=== PATIENT | male | born 1990 | race Caucasian/White ===

== ENCOUNTER 2020-04-27 19:41 | Inpatient (IN) | payer BC, OTHER ==
[~2020-04-27] VITALS: Ht 177.8 cm; Wt 84.0 kg
[2020-04-27 20:20] LABS: MEAN CORPUSCULAR HEMOGLOBIN 30 PG (25-34); WHITE BLOOD COUNT 14.8 10^3/uL (4.3-11.0)
[2020-04-27 20:21] LABS: BASOPHILS % (AUTO) 0 % (0-10); EOSINOPHILS # (AUTO) 0.1 10^3/uL (0.0-0.3); EOSINOPHILS % (AUTO) 1 % (0-10); HEMATOCRIT 44 % (40-54); LYMPHOCYTES # (AUTO) 2.2 X 10^3 (1.0-4.0); LYMPHOCYTES % (AUTO) 15 % (12-44); MEAN CORPUSCULAR HGB CONC 35 G/DL (32-36); MEAN CORPUSCULAR VOLUME 87 FL (80-99); MEAN PLATELET VOLUME 10.5 FL (7.4-10.4); MONOCYTES # (AUTO) 0.8 X 10^3 (0.0-1.0); MONOCYTES % (AUTO) 5 % (0-12); NEUTROPHILS # (AUTO) 11.7 X 10^3 (1.8-7.8); NEUTROPHILS % (AUTO) 79 % (42-75); PLATELET COUNT 184 10^3/uL (130-400)
[2020-04-27 20:37] LABS: ALANINE AMINOTRANSFERASE 25 U/L (0-55); ALBUMIN 4.9 GM/DL (3.2-4.5); ALKALINE PHOSPHATASE 56 U/L (40-136); BILIRUBIN,TOTAL 0.3 MG/DL (0.1-1.0); BUN/CREATININE RATIO 19; CARBON DIOXIDE 24 MMOL/L (21-32); CHLORIDE 103 MMOL/L (98-107); CREATININE SERUM 1.13 MG/DL (0.60-1.30); GFR ESTIMATED > 60; GLUCOSE 162 MG/DL (70-105); POTASSIUM 4.5 MMOL/L (3.6-5.0); SODIUM 139 MMOL/L (135-145); TOTAL PROTEIN 6.9 GM/DL (6.4-8.2)
--- NOTE | 2020-04-27 20:39 | Diagnostic Imaging Report ---
INDICATION: Unresponsiveness. COMPARISON: None available. FINDINGS: The lungs appear clear without focal infiltrate or consolidation. There are no findings of an effusion. There is no evidence of a pneumothorax. Heart size and mediastinal contours appear appropriate. Pulmonary vascularity appears within normal limits. There is no acute or suspicious osseous abnormality demonstrated. IMPRESSION: No radiographic evidence of an acute cardiopulmonary process. Dictated by: Dictated on workstation # [id number]
--- NOTE | 2020-04-27 20:45 | Diagnostic Imaging Report ---
PROCEDURE: CT head without contrast. TECHNIQUE: Multiple contiguous axial images were obtained through the brain without the use of intravenous contrast. Auto Exposure Controls were utilized during the CT exam to meet ALARA standards for radiation dose reduction. INDICATION: Unresponsiveness. Altered mental status. No relevant comparison is available. FINDINGS: There are no CT findings of acute intracranial hemorrhage. There is no evidence of an abnormal extra-axial collection. There is no intracranial mass effect or shift. There are no findings of hydrocephalus. There is no territorial loss of thompson-white differentiation or findings to suggest global cerebral edema. 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 The basilar cisterns appear patent. The mastoid air cells appear clear. The paranasal sinuses demonstrate no air-fluid levels. The orbital contents unremarkable. There is no acute calvarial abnormality. IMPRESSION: 1. 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 There are no CT findings of an acute intracranial abnormality. Dictated by: Dictated on workstation # [id number]
[2020-04-27 20:53] LABS: ABG BASE EXCESS -1.2 MMOL/L (-2.5-2.5); ABG OXYGEN SATURATION 97 % (94-100); ABG PCO2 39 MMHG (35-45); ABG PH 7.39 (7.37-7.43); ABG PO2 93 MMHG (79-93); ABG TCO2 24.8 MMOL/L (21.0-31.0)
[2020-04-27 20:54] LABS: ALLENS TEST YES-POS; INSPIRED O2 ROOM AIR; PATIENT TEMP 98.4; VENTILATOR NO
[2020-04-27 21:01] LABS: BAND NEUTROPHILS 7 %; BASOPHILS % (MANUAL) 0 %; EOSINOPHILS % (MANUAL) 0 %; LYMPHOCYTES % (MANUAL) 20 %; MONOCYTES % (MANUAL) 6 %; NEUTROPHILS % (MANUAL) 67 %; RBC MORPH NORMAL
--- NOTE | 2020-04-27 21:01 | NUR ---
PT AWAKE IN ROOM AND ABLE TO ANSWER SOME QUESTIONS. PT STATES HE REMEMBERS VOMITING ON SELF TODAY. PT GOES BACK TO SLEEP AND WAKES EASILY.
[2020-04-27] MEDS: NS IV 1000 ML 1,000 ML IV SCH ×3 (21:02→23:31)
[2020-04-27] MEDS ORDERED: cefTRIAXone FOR IV USE 2,000 MG in WATER (STERILE) FOR INJECTION 20 ML IV ONE (21:30)
[2020-04-27] MEDS ORDERED: VANCOMYCIN INJECTION 1,500 MG in NS IV 500 ML 500 ML IV ONE (21:30)
[2020-04-27] MEDS ORDERED: ETOMIDATE IV SOLN 20 MG/10 ML VIAL IV ONE (21:30)
--- NOTE | 2020-04-27 22:33 | NUR ---
PT'S CALLED AND WAS GIVEN UPDATE. INFORMED THAT PT WILL BE ADMITTED AND THAT WE ARE WAITING TO FIND OUT ABOUT BED AVAILABILITY AT [facility]. INFORMED THAT IF BEDS ARE NOT AVAILIBLE IN [place] THAT PT WILL BE TRANSFERRED TO ANOTHER FACILITY AND THAT SHE WOULD BE CONTACTED WHEN IT WAS DETERMINED WHERE THE PT WILL BE ADMITTED. VOICED UNDERSTANDING AND STATES THAT SHE AND FAMILY WILL RETURN HOME AT THIS TIME.
[2020-04-27 22:59] LABS: AMPHETAMINE SCREEN, URINE NEGATIVE (NEGATIVE); BARBITURATE SCREEN URINE NEGATIVE (NEGATIVE); BENZODIAZEPINES SCREEN URINE NEGATIVE (NEGATIVE); CANNABINOID SCREEN, URINE NEGATIVE (NEGATIVE); COCAINE SCREEN URINE NEGATIVE (NEGATIVE); METHADONE STAT NEGATIVE (NEGATIVE); METHAMPHETAMINE SCREEN URINE S NEGATIVE (NEGATIVE); OPIATE SCREEN URINE NEGATIVE (NEGATIVE); OXYCODONE STAT NEGATIVE (NEGATIVE); PROPOXYPHENE STAT NEGATIVE (NEGATIVE); TRICYCLIC ANTIDEPRESSANTS SCRE NEGATIVE (NEGATIVE)
[2020-04-27 23:45] LABS: AMMONIA 43 UMOL/L (11-32)
--- NOTE | 2020-04-27 23:46 | NUR ---
EMS CONTACTED FOR TRANSPORT TO [facility]
[2020-04-27 23:49] LABS: CSF GLUCOSE 71 MG/DL (50-80)
[2020-04-27 23:55] LABS: CSF TOTAL PROTEIN 26 MG/DL (15-40)
--- NOTE | 2020-04-27 23:55 | NUR ---
FIRST ATTEMPT TO CALL REPORT. JR IN ICU STATES THAT NURSE HAS CHANGED AND THAT THEY WILL CALL WITH NEW INFORMATION. JR INFORMED THAT EMS IS ALREADY ENROUTE TO THIS ED TO PICK PT UP.
--- NOTE | 2020-04-27 23:59 | NUR ---
EMS ARRIVED TO TRANSPORT PT TO [facility].
[2020-04-28 00:10] VITALS: BP 111/69
[2020-04-28 00:35] LABS: APPEARANCE,CSF CLEAR; COLOR,CSF COLORLESS; CSF TUBE NUMBER 3; RED BLOOD CELL,CSF 2 CELLS (0-0); WHITE BLOOD CELL,CSF 2 CELLS (0-5)
--- NOTE | 2020-04-28 01:44 | NUR ---
Abundio Greenberg admitted to room 512-1, with an admitting diagnosis of sepsis, on 04/28/20 from ED via EMS, accompanied by EMS STAFF.ABUNDIO GREENBERG introduced to surroundings, call light, bed controls, phone, TV, temperature control, lights, meal times, smoking policy, visitor policy, side rail policy, bathrooms and showers. Patient Rights given to patient in the handbook.ABUNDIO GREENBERG verbalizes understanding that [facility] is not responsible for the loss or damage to any personal effects or valuables that are kept in the patients posession during their hospitalization.
[2020-04-28] MEDS ORDERED: NS IV 1000 ML 1,000 ML ONE (01:47)
[2020-04-28] MEDS ORDERED: NS IV 1000 ML 1,000 ML IV SCH (02:30)
--- NOTE | 2020-04-28 03:01 | ED General ---
General Chief Complaint: Unresponsive Stated Complaint: SEPSIS,ALTERED MENTAL STATUS,UNRESPONSIVE, Nursing Triage Note: PT TO ROOM FS05 [facility] WITH C/O UNRESPONSIVE. PER EMS, PT WAS FOUND ON COUCH BY UNRESPONSIVE, COVERED IN HIS OWN VOMIT, WITH HIS PANTS PULLED DOWN. PT RESPONSIVE TO PAIN AND WOULD RESPOND TO NOISE BUT IS NOT VERBAL AT THIS TIME. Nursing Sepsis Screen: No Definite Risk Source of Information: EMS Exam Limitations: Other History of Present Illness Date Seen by Provider: Apr 27, 2020 Time Seen by Provider: 21:50 Initial Comments Patient is a 30-year-old male found unresponsive lying in vomit on his family home couch by his . Patient had his pants pulled down and was responsive to pain on EMS arrival. Patient would cry but was nonverbal. No history of diabetes. Blood sugar 108. No history of seizure disorder, drug abuse or evidence of intentional drug overdose. 2 mg of Narcan given without improvement History Limited by the patient's presentation and mental status. Timing/Duration: 1 Hour Severity: Severe Modifying Factors: improves with Other Associated Systoms: Other Allergies and Home Medications Allergies Coded Allergies: Penicillins (Verified Allergy, Unknown, 04/27/20) Sulfa (Sulfonamide Antibiotics) (Verified Allergy, Unknown, 04/27/20) Patient Home Medication List Home Medication List Reviewed: Yes Review of Systems Review of Systems Constitutional: see HPI EENTM: see HPI Respiratory: see HPI Cardiovascular: see HPI Gastrointestinal: see HPI Genitourinary: see HPI Musculoskeletal: see HPI Skin: see HPI Psychiatric/Neurological: See HPI Hematologic/Lymphatic: See HPI Immunological/Allergic: see HPI All Other Systems Reviewed Negative Unless Noted: Yes Past Dynkyen-Knokxo-Vljboe Hx Past Med/Social Hx: Reviewed Nursing Past Med/Soc Hx Patient Social History Alcohol Use: Denies Use Recreational Drug Use: No Smoking Status: Never a Smoker 2nd Hand Smoke Exposure: No Recent Foreign Travel: No Contact w/Someone Who Travel: No Recent Infectious Disease Expo: No Recent Hopitalizations: No Seasonal Allergies Seasonal Allergies: No Past Medical History Surgeries: No Respiratory: No Cardiac: No Neurological: No Genitourinary: No Gastrointestinal: No Musculoskeletal: No Endocrine: No HEENT: No Cancer: No Psychosocial: No Integumentary: No Physical Exam Vital Signs Vital Signs - First Documented 04/27/20 04/28/20 19:45 00:10 Temp 36.9 Pulse 67 Resp 16 B/P (MAP) 142/84 (103) Pulse Ox 99 O2 Delivery Room Air Capillary Refill : Less Than 3 Seconds Height, Weight, BMI Height: '" Weight: lbs. oz. kg; 22.00 BMI Method: General Appearance: Other (obtunded, pale, diaphoretic.) Eyes: Bilateral Eye Normal Inspection, Bilateral Eye PERRL, Bilateral Eye EOMI HEENT: PERRL/EOMI, Normal ENT Inspection, Pharynx Normal, Moist Mucous Membranes, Other (no oral lacerations.) Neck: Non Tender, Supple, Other (no meningismus or rigidity.) Respiratory: Lungs Clear, Decreased Breath Sounds Cardiovascular: Regular Rate, Rhythm Gastrointestinal: Normal Bowel Sounds, Non Tender, Soft Back: Normal Inspection Extremity: Other (decreased Really refill) Neurologic/Psychiatric: Other (obtunded, doesn't followcommands, verbal response, speaks in 2-3 word sentences.) Focused Exam Sepsis Stage: Sepsis Possible Source: Unknown Lactate Level 04/27/20 20:00: Lactic Acid Level 2.49*H Time of Focused Exam: 22:00 Respiratory: Lungs Clear Cardiovascular: Regular Rate, Rhythm Capillary Refill: Less Than 3 Seconds Skin: diaphoresis Lactic Acid Level 2.5 Within 3hrs of presentation: Admin fluids, Admin ABX, Blood cultures prior to ABX's, Focus exam, Lactate level Procedures/Interventions Discussed Risk,Benefits: No (emergently) Patient Consents: No Position: L3-4, Right Sterile Technique: Yes Fluid Color: c;ear Size of Disposal Tray Used: Adult patient given etomidate prior to procedure for cooperation and safety Progress/Results/Core Measures Suspected Sepsis Recent Fever Within 48 Hours: No Infection Criteria Present: Documented Infection New/Unexplained Altered Menta: Yes Sepsis Screen: No Definite Risk SIRS Temperature: Pulse: 67 Respiratory Rate: 17 Laboratory Tests 04/27/20 20:00: White Blood Count 14.8H Blood Pressure 111 /69 Mean: 78 04/27/20 20:00: Lactic Acid Level 2.49*H Laboratory Tests 04/27/20 20:00: Creatinine 1.13, Platelet Count 184, Total Bilirubin 0.3 Results/Orders Lab Results Laboratory Tests Test 04/27/20 19:52 04/27/20 20:00 04/27/20 20:45 04/27/20 22:00 Range/Units Glucometer 110 70-110 MG/DL White Blood Count 14.8 H 4.3-11.0 10^3/uL Red Blood Count 4.98 4.35-5.85 10^6/uL Hemoglobin 15.0 13.3-17.7 G/DL Hematocrit 44 40-54 % Mean Corpuscular Volume 87 80-99 FL Mean Corpuscular Hemoglobin 30 25-34 PG Mean Corpuscular Hemoglobin Concent 35 32-36 G/DL Red Cell Distribution Width 12.8 10.0-14.5 % Platelet Count 184 130-400 10^3/uL Mean Platelet Volume 10.5 H 7.4-10.4 FL Immature Granulocyte % (Auto) 0 % Neutrophils (%) (Auto) 79 H 42-75 % Lymphocytes (%) (Auto) 15 12-44 % Monocytes (%) (Auto) 5 0-12 % Eosinophils (%) (Auto) 1 0-10 % Basophils (%) (Auto) 0 0-10 % Neutrophils # (Auto) 11.7 H 1.8-7.8 X 10^3 Lymphocytes # (Auto) 2.2 1.0-4.0 X 10^3 Monocytes # (Auto) 0.8 0.0-1.0 X 10^3 Eosinophils # (Auto) 0.1 0.0-0.3 10^3/uL Basophils # (Auto) 0.0 0.0-0.1 10^3/uL Immature Granulocyte # (Auto) 0.1 0.0-0.1 10^3/uL Neutrophils % (Manual) 67 % Lymphocytes % (Manual) 20 % Monocytes % (Manual) 6 % Eosinophils % (Manual) 0 % Basophils % (Manual) 0 % Band Neutrophils 7 % Blood Morphology Comment NORMAL Sodium Level 139 135-145 MMOL/L Potassium Level 4.5 3.6-5.0 MMOL/L Chloride Level 103 98-107 MMOL/L Carbon Dioxide Level 24 21-32 MMOL/L Anion Gap 12 5-14 MMOL/L Blood Urea Nitrogen 22 H 7-18 MG/DL Creatinine 1.13 0.60-1.30 MG/DL Estimat Glomerular Filtration Rate > 60 BUN/Creatinine Ratio 19 Glucose Level 162 H 70-105 MG/DL Lactic Acid Level 2.49 *H 0.50-2.00 MMOL/L Calcium Level 9.0 8.5-10.1 MG/DL Corrected Calcium 8.5-10.1 MG/DL Total Bilirubin 0.3 0.1-1.0 MG/DL Aspartate Amino Transf (AST/SGOT) 22 5-34 U/L Alanine Aminotransferase (ALT/SGPT) 25 0-55 U/L Alkaline Phosphatase 56 40-136 U/L Ammonia 43 H 11-32 UMOL/L C-Reactive Protein 0.03 <0.50 MG/DL Total Protein 6.9 6.4-8.2 GM/DL Albumin 4.9 H 3.2-4.5 GM/DL Serum Alcohol < 10 <10 MG/DL Blood Gas Puncture Site LT RAD Blood Gas Patient Temperature 98.4 Arterial Blood pH 7.39 7.37-7.43 Arterial Blood Partial Pressure CO2 39 35-45 MMHG Arterial Blood Partial Pressure O2 93 79-93 MMHG Arterial Blood HCO3 24 23-27 MMOL/L Arterial Blood Total CO2 24.8 21.0-31.0 MMOL/L Arterial Blood Oxygen Saturation 97 94-100 % Arterial Blood Base Excess -1.2 -2.5-2.5 MMOL/L Stas Test YES-POS Blood Gas Ventilator Setting NO Blood Gas Inspired Oxygen ROOM AIR CSF Tube Number 3 CSF Appearance CLEAR CSF Color COLORLESS CSF WBC 2 0-5 CELLS CSF RBC 2 H 0-0 CELLS CSF Lymphocytes % CSF Mononuclear WBCs % CSF Polynuclear WBCs % CSF Glucose 71 50-80 MG/DL CSF Total Protein 26 15-40 MG/DL Test 04/27/20 22:30 Range/Units Urine Opiates Screen NEGATIVE NEGATIVE Urine Oxycodone Screen NEGATIVE NEGATIVE Urine Methadone Screen NEGATIVE NEGATIVE Urine Propoxyphene Screen NEGATIVE NEGATIVE Urine Barbiturates Screen NEGATIVE NEGATIVE Ur Tricyclic Antidepressants Screen NEGATIVE NEGATIVE Urine Phencyclidine Screen NEGATIVE NEGATIVE Urine Amphetamines Screen NEGATIVE NEGATIVE Urine Methamphetamines Screen NEGATIVE NEGATIVE Urine Benzodiazepines Screen NEGATIVE NEGATIVE Urine Cocaine Screen NEGATIVE NEGATIVE Urine Cannabinoids Screen NEGATIVE NEGATIVE My Orders Orders - NATHAN VELASQUEZ DO Cbc With Automated Diff (04/27/20 19:48) Comprehensive Metabolic Panel (04/27/20 19:48) Crp Fs (04/27/20 19:48) Arterial Blood Gas (04/27/20 19:48) Fsbs Greater Than 70mg/Dl (04/27/20 19:48) Drug Screen Stat (Urine) (04/27/20 19:48) Alcohol (12/10/20 19:48) Ammonia (04/27/20 19:48) Ct Head Wo (04/27/20 19:48) Lactic Acid Analyzer (04/27/20 19:48) Blood Culture (04/27/20 19:48) Chest 1 View Ap/Pa Only (04/27/20 19:48) Ekg Tracing (04/27/20 19:48) Manual Differential (04/27/20 20:00) Arterial Blood Gas (04/27/20 20:49) Ns Iv 1000 Ml (Sodium Chloride 0.9%) (04/27/20 21:00) Ceftriaxone For Iv Use (Rocephin For I (04/27/20 21:30) Vancomycin Injection (Vancomycin Injecti (04/27/20 21:30) Dexamethasone Injection (Decadron Injec (04/27/20 21:30) Etomidate Injection (Amidate Injection) (04/27/20 21:30) Blood Culture (04/27/20 20:06) Csf Cell Count (04/27/20 22:47) Csf Culture (04/27/20 22:47) Csf Glucose (04/27/20 22:47) Csf Total Protein (04/27/20 22:47) Medications Given in ED Current Medications Medications Dose Ordered Sig/Estela Route Start Time Stop Time Status Last Admin Dose Admin Ceftriaxone Sodium 2000 mg/ Sterile Water 20 ml @ 240 mls/hr ONCE ONCE IV 04/27/20 21:30 04/27/20 21:34 DC 04/27/20 22:04 240 MLS/HR Dexamethasone Sodium Phosphate 4 mg ONCE ONCE IV 04/27/20 21:30 04/27/20 21:31 DC 04/27/20 22:04 4 MG Etomidate 10 mg ONCE ONCE IV 04/27/20 21:30 04/27/20 21:31 DC 04/27/20 22:04 10 MG Vancomycin HCl 1500 mg/Sodium Chloride 500 ml @ 257.5 mls/ hr ONCE ONCE IV 04/27/20 21:30 04/27/20 23:26 DC 04/27/20 22:04 257.5 MLS/HR Vital Signs/I&O 04/27/20 04/28/20 04/28/20 04/28/20 19:45 00:10 00:55 02:07 Temp 36.9 36.0 36.0 Pulse 67 67 73 72 Resp 16 17 22 20 B/P (MAP) 142/84 (103) 111/69 104/58 (73) 112/67 (82) Pulse Ox 99 98 97 O2 Delivery Room Air Room Air Room Air Room Air 04/28/20 04/28/20 02:37 02:53 Pulse 73 Resp 20 B/P (MAP) 107/63 (78) Pulse Ox 97 97 O2 Delivery Room Air Room Air 04/28/20 00:00 Intake Total 2020 ml Balance 2020 ml Capillary Refill : Less Than 3 Seconds Blood Pressure Mean: 78 Departure Communication (Admissions) Altered mental status with elevated white blood cell count, unknown source of infection. Patient afebrile with stable vital signs in the emergency department but clammy and pale skin and elevated white blood cell count. CT head, initial lab reviewed. Clinically no source of infection. LP performed and tests pending as it is not available at this facility. Empiric embolic skin. Dr. Rico excepts to [place] for completion of workup. Patient remains in stable critical condition with unknown diagnosis at time of transfer Impression Primary Impression: Sepsis Additional Impression: Altered mental status Disposition: XFER T-[facility] Condition: Critical Admissions Decision to Admit Reason: Admit from ER (General) Transfer Transfer Reason: Exceeds level of care Time Spoke to Accepting Phy: 22:30 (Dr. Rico) Method of Transfer: EMS Departure-Patient Inst. Referrals: NOELLE MINAYA MD (PCP) Primary Care Physician NATHAN VELASQUEZ DO Apr 28, 2020 03:01
[2020-04-28 04:13] LABS: BASOPHILS % (AUTO) 0 % (0-10); EOSINOPHILS % (AUTO) 0 % (0-10); HEMATOCRIT 38 % (40-54); HEMOGLOBIN 12.6 g/dL (13.3-17.7); LYMPHOCYTES # (AUTO) 0.5 10^3/uL (1.0-4.0); LYMPHOCYTES % (AUTO) 4 % (12-44); MEAN CORPUSCULAR HEMOGLOBIN 30 pg (25-34); MEAN CORPUSCULAR HGB CONC 33 g/dL (32-36); MEAN CORPUSCULAR VOLUME 90 fL (80-99); MEAN PLATELET VOLUME 10.8 fL (9.0-12.2); MONOCYTES # (AUTO) 0.2 10^3/uL (0.0-1.0); MONOCYTES % (AUTO) 2 % (0-12); NEUTROPHILS # (AUTO) 9.7 10^3/uL (1.8-7.8); NEUTROPHILS % (AUTO) 93 % (42-75); PLATELET COUNT 154 10^3/uL (130-400); WHITE BLOOD COUNT 10.4 10^3/uL (4.3-11.0)
[2020-04-28 04:27] LABS: ALBUMIN 3.8 GM/DL (3.2-4.5); CHLORIDE 111 MMOL/L (98-107); POTASSIUM 4.5 MMOL/L (3.6-5.0); SODIUM 139 MMOL/L (135-145)
[2020-04-28 04:28] LABS: CALCIUM 7.4 MG/DL (8.5-10.1)
[2020-04-28 04:29] LABS: GLUCOSE 159 MG/DL (70-105)
[2020-04-28 04:30] LABS: TOTAL PROTEIN 5.8 GM/DL (6.4-8.2)
[2020-04-28 04:31] LABS: BILIRUBIN,TOTAL 0.8 MG/DL (0.1-1.0); CARBON DIOXIDE 19 MMOL/L (21-32)
[2020-04-28 04:33] LABS: ALKALINE PHOSPHATASE 40 U/L (40-136); CREATININE SERUM 1.14 MG/DL (0.60-1.30); GFR ESTIMATED > 60
[2020-04-28 04:34] LABS: BUN/CREATININE RATIO 20
[2020-04-28 04:36] LABS: ALANINE AMINOTRANSFERASE 25 U/L (0-55)
[2020-04-28] MEDS ORDERED: ACYCLOVIR INJECTION 800 MG in NS (IVPB) 250 ML IV SCH (06:00)
[2020-04-28] MEDS ORDERED: VANCOMYCIN INJECTION 750 MG in NS (IVPB) 250 ML IV SCH (08:00)
--- NOTE | 2020-04-28 10:00 | NUR ---
VANCOMYCIN DOSING SCR 1.14; IBW 73 KG; CRCL ~ 99; EPHARMACY DOSED BOLUS VANC 1500 MG THEN VANC 750 MG Q8H CHECK TROUGH LEVEL 04/29 0700 HOLD DOSE AND CONTACT PHARMACY IF LEVEL IS GREATER THAN 20 OR LESS THAN 10
--- NOTE | 2020-04-28 10:15 | NUR ---
PT FOUND TO HAVE LEFT SIDED FACIAL DROOP, AND LEFT SIDED WEAKNESS. PT AWAKENS WHEN NAME CALLED AND ABLE TO FOLLOW COMMAND. MRI ORDERED PER DR. CHRISTIAN
[2020-04-28] MEDS ORDERED: IBUP-2473 PO (10:28)
[2020-04-28] MEDS ORDERED: ESOM20CA58 PO (10:28)
--- NOTE | 2020-04-28 10:29 | NUR ---
I COULD NOT REACH THE PT ON THE ROOM PHONE- I THEN CALLED THE CELL # LISTED FOR HIM. PTS ([facility]OPE) ANSWERED AND I WAS ABLE TO COMPLETE THE MED REC FROM HER INFORMATION. ACCORDING TO HOPE THE PT DOES NOT TAKE ANY PRESCRIPTION MEDICATIONS AND ONLY TAKES OTC IBUPROFEN AND NEXIUM PRN. I UPDATED THE PREFERRED PHARMACY TO [facility] PER [facility]OPE'S REQUEST
--- NOTE | 2020-04-28 11:22 | Occ Therapy Progress Note ---
Therapy Progress Note OT orders received, chart reviewed. Per nursing/ DO, pt is to complete MRI due to suspected CVA. OT to hold tx at this time and await findings. OT to check in at next available time when medically appropriate. ROBERT ROY OTR Apr 28, 2020 11:22
--- NOTE | 2020-04-28 12:53 | NUR ---
MRI Emergency alarm started alarming. Yajaira communications technologist, yelled out in on license of [facility] for help. This RN immediately went to MRI where patient was discovered to be unresponsive. Patient difficult to arouse via sternal rubs. Patient moved out of MRI suite. Pulse check confirmed no pulse. CPR initiated immediately. Code Blue called. 1303: Epinephrine 1mg administered intravenously. Patient intubated by Dr. Fawad Castillo. 1304: Pulse check, no pulse palpable. CPR resumed immediately. 1305: Bolus of Normal Saline initiated. 1306: Epinephrine 1mg administered intravenously. 1310: Pulse check, no pulse palpable. CPR resumed immediately. 1311: Epinephrine 1mg administered intravenously. 1314: Pulse check and cardiac ultrasound performed. No pulse palpable and no cardiac motion detected. 1316: Epinephrine 1mg administered intravenously. 1318: Pulse check, no pulse palpable. CPR resumed immediately. Blood glucose level checked and resulted 114. 1321: Pulse check, pulse palpable, cardiac ultrasound confirmed slight cardiac motion. Pulse lost. CPR resumed immediately. 1325: Pulse check, no pulse palpable. CPR resumed immediately. 1327: Pulse check, no pulse palpable. CPR resumed immediately. 1328: Epinephrine 1mg administered intravenously. 1330: Pulse check, no pulse palpable. Dr. Gomez pronounced Time of .
[2020-04-28] MEDS ORDERED: LORazepam INJ 2 MG/ML (ATIVAN) VIAL ONE (13:00)
--- NOTE | 2020-04-28 13:00 | NUR ---
Called to MRI due to pt have a possible seizure. upon arrival pt was unresponsive and resuscitation measure were provided.
--- NOTE | 2020-04-28 13:20 | NUR ---
Responded to code kevon in Xray, contacted pts via phone, provided support. After pt I met family at hospital entrance, which included pts and her mother and sister(the sister did not enter hospital), pts 3 brothers and pts mother and father. I accompanied them to room to see pt and grieve, they made this journey 2 at a time, I accompanied each visit. I wore PPE and family wore masks. I offered support and prayer and comfort. Family was grieving but coping well and supporting one another. Cheikh GHOTRA RN was present at entry and facilitated with this process.
--- NOTE | 2020-04-28 13:21 | Anesthesia-Procedure Note ---
Procedures/Interventions Procedure Start/Stop/Diagnosis Date of Procedure: Apr 28, 2020 Start Time: 13:00 Referring Physician: Jason Preprocedural Diagnosis: Cardiopulmonary Arrest Brief History Responded to overhead Code blue to MRI. Code team in progress with CPR and ventilations per BVM. VL with [place] grade 1 view. #8.0 ETT at 24 CM. Breath sounds confirmed by myself and Dr. Gomez. ETCO2 confirmed with [employer]. Tube secured by RT. Pt left in care of code team. Stop Time: 13:07 Postprocedural Diagnosis: Cardiopulmonary Arrest Intubation RSI: No 100% pre-Ox, [id number]: No Videoscope used: Yes Mask Ventilation: positive Positive End Tide CO2: Yes Breath Sounds after Intubation: bilateral-equal Intubated with ease: Yes Intubation Complications: no complications Post Intubation Xray-done: No MARISOL SANDERS CRNA Apr 28, 2020 13:21
--- NOTE | 2020-04-28 13:25 | NUR ---
Responded to CODE. Retrieved 's number from registration. Provided Parts Professional Augusto with 's number and he resumed the call.
--- NOTE | 2020-04-28 14:33 | Diagnostic Imaging Report ---
PROCEDURE: MR imaging of the brain without contrast. TECHNIQUE: Multiplanar, multisequence MR imaging of the brain was performed without contrast. INDICATION: Unresponsive and possible stroke. Correlation is made with head CT one day earlier. Dimitry cisterna magna is again noted. Diffusion weighted images demonstrate a large area of diffusion restriction involving the right middle cerebral artery territory consistent with acute/subacute ischemia. There is restriction in the right caudate head. There is absence of the normal flow void in the right internal carotid artery consistent with right internal carotid artery occlusion. Flow voids within the left carotid siphon and basilar are noted. A moderate amount of edema on the right cerebral hemisphere is noted. There is no midline shift. Only limited imaging was performed due to patient experiencing a seizure during the study. IMPRESSION: 1. 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 Dictated by: Dictated on workstation # [id number]
--- NOTE | 2020-04-28 15:50 | NUR ---
Notified [facility] health dept and Dr Ge [facility] Coroner of possible COVID. [facility] Coroner wanted [facility] notified for autopsy. House sup notified.
--- NOTE | 2020-04-28 16:30 | NUR ---
NOTE FOR MANY EVENTS OF THE DAY REGARDING THIS PATIENT: Responded to CODE BLUE of patient while down getting MRI. Unsuccessful outcome after 30 minutes of resuscitation efforts. Called patient's with Dr. Giles and notified of of outcome. She was expected hysterical, but she indicated her mother had arrived and was with her and would drive her to the hospital. Received a note with patient's mothers phone number and was told she was in the parking lot. Called her to update her and her father about the events of the morning...again appropriately hysterical. She asked if she could see "her baby" and at this time reported that she is COVID +. I explained I would have to ask and see how we would work around this. She then indicated that a brother of the patient was in the parking lot. and was positive for COVID too... I and now the dev managerconsuelo Casas found patient's brother who was hysterical in his car. Once everyone arrived Chaplain Casas and I explained we would allow for 2 at a time to visit wearing a hospital gown and escorted by Chaplain Casas. We then started the visitation process. While patient's and her mother were up visiting I spoke to the mother and father to see if they had any questions. The father asked how this could have happened so quickly. I answered to what I knew and what could be possible precipitating factors. The sister in law later approached this RN to discuss that she felt I had answered the question inappropriately...I didn't need to mention COVID because now they are feeling guilty. She also had concern for only allowing for 2 visitors at a time and she knew for a fact that other family were allowed more that that.. Any time I attempted to explain or agree she shut me down and told me not to speak. The also has asked for an autopsy.
[2020-04-28] MEDS ORDERED: EPINEPHrine 0.1 MG/ML 10 ML (HOSPIRA) SYR IJ ONE (20:55)
[2020-04-28] MEDS ORDERED: NS 1000 ML IV BAG IV ONE (20:55)
[2020-04-28] MEDS ORDERED: cefTRIAXone 2,000 MG/SWFI 20 ML IV PUSH IV SCH ×2 (22:00)
[2020-04-29] MEDS ORDERED: TROUGH ORDER-PHARMACY XX NR (07:00)
--- NOTE | 2020-04-29 21:06 | Discharge Summary ---
Discharge Summary Hospital Course Problems/Dx: (1) Altered mental status Status: Acute (2) Acute ischemic right MCA stroke Status: Acute (3) Seizure Status: Acute (4) Cardiac arrest Status: Acute Hospital Course Date of Admission: Apr 28, 2020 at 00:46 Admission Diagnosis : Altered mental status Family Physician/Provider: Scott Cooper MD Date of Discharge: 04/29/20 Discharge Diagnosis: Acute ischemic right MCA stroke Hospital Course: Abundio Quinonez was a 30 year old male who presented to the [facility] with altered mental status. He was found unresponsive, covered in vomit, on his living room couch by his . He was taken to the ER by EMS. He was unresponsive and unable to cooperate with examination. His workup was unrevealing. His toxicology screen was negative and he had no reported history of drug abuse. He was given Narcan without improvement. He underwent a CT scan which showed no acute abnormalities. He underwent an LP which was also unrevealing. He was started empirically with antibiotics and Acyclovir while his results were pending. Upon my examination at 1030, he was awake, alert and oriented. He was able to slowly answer questions. He was noted to have a right gaze deviation and his head was also turned to the right. He appeared to be ex periencing princess-neglect. He had a left sided facial droop. He had left sided arm and leg weakness. At that point, he was outside of the window for intervention. An MRI Brain was ordered. While undergoing the MRI, he began experiencing seizure-like activity and he then suffered cardiac arrest. A code blue was called at ~1300 and he received CPR and ACLS for 30 minutes prior to his being called at 1330 on 04/28/2020. The initial images were obtained by the MRI and showed a large ischemic right MCA stroke. An echocardiogram was performed during the code and appeared to show a pericardial effusion and a possible right ventricular thrombus. While talking with his via telephone during the code, she mentioned that he was "at risk for something like this to happen" because he had a heart condition and underwent a heart surgery at a very young age, but the specific condition and surgery are unknown. He was tested post-mortem for COVID and he had two negative JO ANN (rapid) tests, two negative PCR tests, and a negative antibody test. Labs and Pending Lab Test: Microbiology 04/27/20 Gram Stain - Final, Resulted 04/27/20 CSF Culture - Preliminary, Resulted No growth 04/27/20 Blood Culture - Preliminary, Resulted See Comments Home Meds Active Reported Nexium 24Hr (Esomeprazole Magnesium) 20 Mg Capsule.dr 20 Mg PO DAILY PRN Ibuprofen 200 Mg Tablet 400-600 Mg PO Q8H PRN Assessment/Pt Instructions Patient . Discharge Planning: >30 minutes discharge planning Discharge Physical Examination Vital Signs Vital Signs Date Time Temp Pulse Resp B/P (MAP) Pulse Ox O2 Delivery O2 Flow Rate FiO2 04/28/20 13:00 80 04/28/20 12:15 36.9 04/28/20 11:45 16 118/58 (78) 95 04/28/20 10:45 Room Air General Appearance: WD/WN, Mild Distress (difficulty communicating) HEENT: Pharynx Normal, Other (right gaze deviation, vertical and horizontal nystagmus) Respiratory: Lungs Clear, Normal Breath Sounds, No Respiratory Distress Cardiovascular: Regular Rate, Rhythm, No Edema, No Murmur Gastrointestinal: Normal Bowel Sounds, Non Tender, Soft Extremity: Normal Inspection, Non Tender, No Pedal Edema Skin: Normal Color, Warm/Dry Neurologic/Psychiatric: Alert, Oriented x3, Facial Droop (left sided), Motor Weakness (left sided) Allergies: Coded Allergies: Penicillins (Verified Allergy, Unknown, 04/27/20) Sulfa (Sulfonamide Antibiotics) (Verified Allergy, Unknown, 04/27/20) Discharge Summary Date of Admission Apr 28, 2020 at 00:46 Date of Discharge Apr 28, 2020 at 20:56 Discharge Date: Apr 28, 2020 Discharge Time: 20:56 Admission Diagnosis Altered mental status Comfort Measures/ Date of : Apr 28, 2020 Time of : 13:30 Discharge Diagnosis (1) Altered mental status Status: Acute (2) Acute ischemic right MCA stroke Status: Acute (3) Seizure Status: Acute (4) Cardiac arrest Status: Acute Clinical Quality Measures DVT/VTE Risk/Contraindication: Risk Factor Score Per Nursin RFS Level Per Nursing on Admit: 4+=Very High GENNY CHRISTIAN MD Apr 29, 2020 20:56
== END 2020-04-28 20:56 | disposition expired | DRG 65 ==
LOC: ER FS 19:43 → CSD 04-28 00:46
PROVIDERS: ADMIT Internal Medicine; ATTEND Internal Medicine
PROC: 009U3ZX Drainage of Spinal Canal, Percutaneous Approach, Diagnostic (ICD-10-PCS; principal; 2020-04-28)
DX: I63.511 Cerebral infarction due to unspecified occlusion or stenosis of right middle cerebral artery (principal); G81.94 Hemiplegia, unspecified affecting left nondominant side; R41.4 Neurologic neglect syndrome; I31.3 Pericardial effusion (noninflammatory); I24.0 Acute coronary thrombosis not resulting in myocardial infarction; R29.810 Facial weakness; I46.9 Cardiac arrest, cause unspecified; R56.9 Unspecified convulsions; Z20.828 Contact with and (suspected) exposure to other viral communicable diseases
CPT/HCPCS: 36415; 70450; 70551; 71045; 80053; 80306; 80320; 82140; 82805; 82945; 82962; 83605; 84157; 85007; 85025; 85027; 86141; 86769; 87040; 87070; 87205; 87635; 89051; 93005; 93308; 99291